=== PATIENT | male | born 1985 | race Caucasian/White ===

== ENCOUNTER 2019-12-11 08:38 | Observation (INO) | payer BC ==
--- NOTE | 2019-12-11 09:37 | RAD ---
XR Chest 1 View Portable HISTORY: Chest pain COMPARISON: 09/04/2013 FINDINGS: The heart size is normal. The lungs are well expanded without focal areas of consolidation, pneumothorax or pleural effusions. IMPRESSION: No radiographic evidence of acute cardiopulmonary process.
[2019-12-11 09:38] LABS: #Basophils 0.1 thou/uL (0.0-0.2); #Eosinphils 0.5 thou/uL (0.0-0.7); #Lymphocytes 3.6 thou/uL (1.20-3.40); #Monocytes 0.7 thou/uL (0.11-0.59); %Basophils 1.1 % (0.0-1.0); %Eosinophils 5.5 % (0.0-10.0); %Lymphocytes 40.8 % (21.0-51.0); %Monocytes 7.3 % (0.0-10.0); %Neutrophils 45.1 % (42.0-75.0); Hemoglobin 15.4 g/dL (14.0-18.0); Mean Corpuscular HGB CONC 32.4 g/dL (32.0-36.0); Mean Corpuscular Hemoglobin 27.6 pg (27.0-31.0); Mean Corpuscular Volume 85.3 fL (78.0-98.0); Mean Platelet Volume 7.5 fL (7.4-10.4); Platelet Count 245 thou/uL (130-400); Red Blood Cell (RBC) Count 5.56 mill/uL (4.70-6.10); White Blood Cell (WBC) Count 8.9 thou/uL (4.8-10.8)
[2019-12-11 10:05] LABS: ALT (SGPT) 46 U/L (8-55); AST (SGOT) 32 U/L (5-34); Albumin 3.7 g/dL (3.5-5.0); Alkaline Phosphatase 71 U/L (40-110); Anion Gap 12 mmol/L (10-20); BUN (Urea Nitrogen) 9 mg/dL (8.9-20.6); Bilirubin, Total 0.5 mg/dL (0.2-1.2); Calc. Creatinine Clearance 0 mL/min (70-130); Calcium 9.1 mg/dL (7.8-10.44); Carbon Dioxide 27 mmol/L (22-29); Chloride 104 mmol/L (98-107); Estimated GFR-MDRD 88; Globulin 3.4 g/dL (2.4-3.5); Glucose 88 mg/dL (70-105); Potassium 4.2 mmol/L (3.5-5.1); Protein, Total 7.1 g/dL (6.0-8.3); Sodium 139 mmol/L (136-145)
[2019-12-11 10:20] LABS: CKMB 2.1 ng/mL (0-6.6)
[2019-12-11] MEDS ORDERED: Aspirin Chewable 81 MG TAB ONE (14:54)
--- NOTE | 2019-12-11 15:49 | HP ---
PRIMARY CARE PHYSICIAN: Ricardo Mello MD CHIEF COMPLAINT: Chest pain. HISTORY OF PRESENT ILLNESS: The patient is a pleasant 34-year-old male with past medical history of obesity who experienced chest pain and palpitations last night while at work. 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 He was not exerting himself at that time. He was walking around some, but mainly sitting when this pain occurred. He denies any shortness of breath, headache, or dizziness. He states he was diaphoretic, but they also have to wear the blue plastic PPE gowns for the majority of their shift, so he states he usually is sweaty and that this may not have been caused by the chest pain. The patient claims that this has happened in the past and improved on its own, so he was never seen in the ER for it. He was recently tested for COVID and was negative. He denies any fever, cough, nausea, vomiting, or diarrhea. He does state that he does usually have some level of shortness of breath, but it is due to his weight versus being new. Today, in the ER, they completed a chest x-ray and EKG and lab work. PAST MEDICAL HISTORY: OCD. PAST SURGICAL HISTORY: None. ALLERGIES: NO KNOWN DRUG ALLERGIES. MEDICATIONS: None. SOCIAL HISTORY: The patient lives alone. 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 He denies any alcohol or drug abuse. He is a former tobacco user and still chews nicotine gum regularly. FAMILY HISTORY: Grandmother with diabetes. REVIEW OF SYSTEMS: All other review of systems negative unless noted in the HPI. PHYSICAL EXAMINATION: VITAL SIGNS: Blood pressure 102/54, pulse 78, respiratory rate 15, and O2 saturation 95% on room air. No pain. HEENT: Head, atraumatic and normocephalic. Eyes, PERRLA. Extraocular muscles intact. No nystagmus. NECK: Normal range of motion. Trachea midline. No lymphadenopathy. RESPIRATORY: Clear to auscultation bilaterally. Normal chest rise. No rhonchi , no wheezes, no rales. CARDIOVASCULAR: Regular rate and rhythm. No rubs, no gallops, no murmurs. ABDOMEN: Soft, nontender. Umbilical hernia that is easily reducible. EXTREMITIES: No edema noted. No cyanosis. No clubbing. Posterior tibial pulse present. NEUROLOGIC: Oriented to person, place, and time. Normal affect. Normal behavior. LABORATORY DATA: White blood cells 8.9, RBCs 5.56, hemoglobin 15.4, hematocrit 47.4. Sodium 139, potassium 4.2, anion gap 12, BUN 9, creatinine 0.98, GFR 88, glucose 88. CK-MB 2.1. Initial troponin 0.039, second troponin is negative. Chest x-ray showed no radiographic evidence of acute cardiopulmonary process. EKG shows sinus rhythm with PVCs, 81 beats per minute. IMPRESSION AND PLAN: Monitor patient on telemetry overnight. We will obtain a TSH and magnesium level with his other lab work and continue to trend his troponins at least for the 3rd set. Stress test has been ordered. He has had nicotine and food today, so most likely it will occur in the morning. Educated the patient over need to be n.p.o. after midnight and to no longer have any nicotine or caffeine until at least after the stress test. The patient is pain-free at this time. We will obtain EKG if the pain does reoccur. GI prophylaxis in place with Pepcid. VT prophylaxis with Lovenox. The patient wishes to be a full code. His surrogate decision maker is his mom, Natalya Ordaz. This patient has been discussed with Dr. Chase. Job ID: [id number] MTDD
[2019-12-11 18:39] VITALS: BMI 56.7
[2019-12-11] MEDS: Atorvastatin Calcium 40 MG TAB PO SCH (20:31)
[2019-12-12] MEDS: Aspirin 325 mg Enteric Coated Tablet PO SCH (08:19)
[2019-12-12] MEDS: Enoxaparin Sodium 40 MG/0.4 ML SYRINGE SC SCH (08:19)
[2019-12-12] MEDS ORDERED: Regadenoson 0.4 MG/5 ML SYRINGE ONE (11:44)
--- NOTE | 2019-12-12 16:20 | PDOC.HOSPP ---
- Subjective Encounter Date: 12/12/19 Encounter Time: 15:00 Subjective: pt up in chair - Objective Vital Signs & Weight: Vital Signs (12 hours) Temp Pulse Resp BP Pulse Ox 12/12/19 12:08 97.8 F 97 19 138/99 H 93 L 12/12/19 07:30 98.0 F 72 22 H 145/68 H 93 L Weight Weight 373 lb 1.6 oz Result Diagrams: 12/11/19 09:25 12/11/19 09:25 Hospitalist ROS - Review of Systems Respiratory: denies: cough, dry, shortness of breath, hemoptysis, SOB with excertion, pleuritic pain, sputum, wheezing, other Cardiovascular: denies: chest pain, palpitations, orthopnea, paroxysmal noc. dyspnea, edema, light headedness, other Gastrointestinal: denies: nausea, vomiting, abdominal pain, diarrhea, constipation, melena, hematochezia, other - Medication Medications: Active Medications Generic Name Dose Route Start Last Admin Trade Name Freq PRN Reason Stop Dose Admin Aspirin 325 mg 12/12/19 09:00 12/12/19 08:19 Ecotrin PO 325 mg DAILY MARYAM Administration Atorvastatin Calcium 40 mg 12/11/19 21:00 12/11/19 20:31 Lipitor PO 40 mg HS MARYAM Administration Enoxaparin Sodium 40 mg 12/12/19 09:00 12/12/19 08:19 Lovenox SC 40 mg 0900 MARYAM Administration - Exam Heart: negative: RRR, no murmur, no gallops, no rubs, normal peripheral pulses, irregular, diminshed peripheral pulses, murmur present, II/IV, III/IV Respiratory: negative: CTAB, no wheezes, no rales, no ronchi, normal chest expansion, no tachypnea, normal percussion, rales, rhonchi, tachypneic, wheezes Gastrointestinal: negative: soft, non-tender, non-distended, normal bowel sounds , no palpable masses, no hepatomegaly, no splenomegaly, no bruit, no guarding, no rigidity, tender to palpation, distended, diminished bowl sounds, voluntary guarding Extremities: negative: no cyanosis, no clubbing, no edema, 1+ LE edema, 2+ LE edema, clubbing Hosp A/P (1) Chest pain Code(s): R07.9 - CHEST PAIN, UNSPECIFIED Status: Acute (2) Obesity Code(s): E66.9 - OBESITY, UNSPECIFIED Status: Acute - Plan pt is undergoing two day stress test. He feels well currently. He is suppose to follow up with his primary for cpap. if his stress test in am is negative he will be discharged.
[2019-12-12] MEDS: Atorvastatin Calcium 40 MG TAB PO SCH (21:19)
[2019-12-13] MEDS ORDERED: Multivit, Therapeutic 1 TAB PO SCH (09:00)
[2019-12-13] MEDS: Aspirin 325 mg Enteric Coated Tablet PO SCH (09:02)
[2019-12-13] MEDS: Enoxaparin Sodium 40 MG/0.4 ML SYRINGE SC SCH (09:04)
--- NOTE | 2019-12-13 10:49 | NM ---
CARDIAC SPECT: CLINICAL HISTORY: 34-year-old male with chest pain. TECHNIQUE: A myocardial perfusion scan was performed using the single isotope two day protocol with 30 mCi techn etium-99m sestamibi injected intravenously for both stress and rest images. Pharmacologic stress with Lexiscan was monitored and interpreted by Flora Rayo NP. FINDINGS: Homogeneous tracer distribution is seen in the myocardial segments on stress and rest images without fixed or reversible defects. GATED SPECT LVEF: 50%. WALL MOTION EXAM: Normal. IMPRESSION: Normal myocardial perfusion scan. POS: CHRISTO
[2019-12-13 11:33] VITALS: BP 130/80; TEMP 97.6
[2019-12-13] MEDS ORDERED: Carvedilol 3.125 MG TAB PO SCH (17:00)
--- NOTE | 2019-12-14 04:13 | DIS ---
DATE OF ADMISSION: 12/11/2019 DATE OF DISCHARGE: 12/13/2019 DISCHARGE DIAGNOSES: 1. Chest pain. 2. Obesity. 3. Mild PVCs. HOSPITAL COURSE: The patient is a 34-year-old, obese male, who initially presented to the hospital with complaints of some throbbing pain and some palpitations that has been going on for some while. The patient at this time was evaluated for heart disease. He had mildly one elevated troponin at 0.039. The rest remaining were normal. His thyroid function was normal. At this time, his electrolytes were stable. He did have a few PVCs. He had a stress test. The stress test was normal. Given his PVCs, I recommended starting the patient on a low-dose beta audra and also wanted him to follow up with Cardiology as an outpatient. He will also require an echocardiogram. I did talk to him about sleep study and he stated that he is going to follow up with his primary for getting set up for sleep study, which he has not done so. We talked about possible putting him on some medications to decrease his LDL. He stated that he wanted to do diet, exercise, and weight loss and try that before starting taking any medications, which is appropriate. The patient felt well. He denied having any symptoms. He will be discharged today. He will follow up with primary and also recommend following up with Cardiology. MEDICATIONS: His medications will be; 1. Aspirin 81 mg daily. 2. Coreg 3.125 twice a day. 3. Fish oil daily. 4. Flonase as needed. 5. Claritin 10 mg a day. PHYSICAL EXAMINATION: VITAL SIGNS: Temperature 97.6, pulse rate 61, respiratory rate 16, O2 saturation 94% on room air, and blood pressure 130/80. GENERAL: He is awake, alert, and oriented x3. Does not appear in distress. Again, I recommend the patient following up with Primary and Cardiology and getting a sleep study. Job ID: [id number]
== END 2019-12-13 12:40 | disposition home or self-care (01) ==
LOC: ERS 08:38 → ERHOLD 13:39 → 2NO 17:09
PROVIDERS: ADMIT Internal Medicine; ATTEND Internal Medicine
DX: R07.9 Chest pain, unspecified (principal); E66.9 Obesity, unspecified; I49.3 Ventricular premature depolarization; F17.220 Nicotine dependence, chewing tobacco, uncomplicated; Z68.43 Body mass index [BMI] 50.0-59.9, adult; Z79.82 Long term (current) use of aspirin; Z79.899 Other long term (current) drug therapy
CPT/HCPCS: 36415; 71045; 78452; 80053; 80061; 82553; 83735; 84443; 84484; 85025; 93005; 93017; 94760; 96372; A9500; G0378; J1650; J2785

== ENCOUNTER 2020-01-23 17:30 | Outpatient (CLI) | payer BC | END 2020-01-23 17:31 | disposition home or self-care (01) | LOC: SLEEPLAB 17:30 | PROVIDERS: ATTEND Family Medicine | DX: F51.9 Sleep disorder not due to a substance or known physiological condition, unspecified (principal); G47.33 Obstructive sleep apnea (adult) (pediatric); R53.83 Other fatigue; R06.83 Snoring; G47.00 Insomnia, unspecified; E66.9 Obesity, unspecified; Z68.43 Body mass index [BMI] 50.0-59.9, adult | CPT/HCPCS: 95806 ==

== ENCOUNTER 2020-10-23 08:52 | Emergency (ER) | payer BC ==
[2020-10-23 09:58] LABS: #Basophils 0.1 thou/uL (0.0-0.2); #Eosinphils 0.5 thou/uL (0.0-0.7); #Lymphocytes 3.8 thou/uL (1.20-3.40); #Monocytes 0.8 thou/uL (0.11-0.59); #Neutrophils 4.9 thou/uL (1.40-6.50); %Basophils 0.9 % (0.0-1.0); %Eosinophils 5.1 % (0.0-10.0); %Lymphocytes 37.7 % (21.0-51.0); %Monocytes 7.5 % (0.0-10.0); %Neutrophils 48.8 % (42.0-75.0); Hemoglobin 15.3 g/dL (14.0-18.0); Mean Corpuscular HGB CONC 34.1 g/dL (32.0-36.0); Mean Corpuscular Hemoglobin 29.2 pg (27.0-31.0); Mean Corpuscular Volume 85.6 fL (78.0-98.0); Mean Platelet Volume 6.9 fL (7.4-10.4); Platelet Count 248 thou/uL (130-400); RBC Distribution Width 11.8 % (11.5-14.5); Red Blood Cell (RBC) Count 5.24 mill/uL (4.70-6.10)
[2020-10-23] MEDS ORDERED: Lorazepam 2 MG/ML VIAL ONE (10:10)
[2020-10-23] MEDS ORDERED: Ondansetron PF 4 MG/2 ML Vial ONE ×2 (10:10→11:42)
[2020-10-23] MEDS ORDERED: Fentanyl 100 MCG/2 ML VIAL ONE (10:10)
[2020-10-23 10:18] LABS: ALT (SGPT) 40 U/L (8-55); AST (SGOT) 29 U/L (5-34); Albumin 3.7 g/dL (3.5-5.0); Alkaline Phosphatase 64 U/L (40-110); Anion Gap 12 mmol/L (10-20); BUN (Urea Nitrogen) 9 mg/dL (8.9-20.6); Bilirubin, Total 0.7 mg/dL (0.2-1.2); Calc. Creatinine Clearance 0 mL/min (70-130); Calcium 8.9 mg/dL (7.8-10.44); Carbon Dioxide 28 mmol/L (22-29); Chloride 98 mmol/L (98-107); Globulin 3.1 g/dL (2.4-3.5); Glucose 94 mg/dL (70-105); Lipase 26 U/L (8-78); Potassium 3.6 mmol/L (3.5-5.1); Protein, Total 6.8 g/dL (6.0-8.3); Sodium 134 mmol/L (136-145)
[2020-10-23] MEDS ORDERED: Ketamine 50 MG/ML (10ML VIAL) ONE (11:42)
== END 2020-10-23 13:54 | disposition home or self-care (01) ==
LOC: ERS 08:52
DX: K43.9 Ventral hernia without obstruction or gangrene (principal); Z87.891 Personal history of nicotine dependence
CPT/HCPCS: 36415; 74177; 80053; 83605; 83690; 84484; 85025; 93005; 96374; 96375; 96376; 99152; J2060; J2405; J3010

== ENCOUNTER → 2020-11-05 | Day surgery (SDC) | payer BC ==
[2020-11-04 16:23] VITALS: BMI 53.8
[~2020-11-05] MED LIST: Acetaminophen 500 MG TAB ONE; Bupivacaine 0.25% HCL 30 ML VIAL ONE; Dexamethasone 20 MG/5 ML VIAL ONE; Fentanyl 100 MCG/2 ML VIAL ONE; Glycopyrrolate 0.2 MG/ML 5 ML SYRINGE ONE; Ketorolac Tromethamine 30 MG/ML VIAL ONE; Lidocaine 1% PF 5 ML VIAL ONE; Lidocaine 1% w/Epinephrine 1:100K 20 ML VIAL ONE; Midazolam HCl 2 mg/2 ml Vial ONE; Ondansetron PF 4 MG/2 ML Vial ONE; PHENYLEPHRINE-NS 100 MCG/ML 10 ML SYRINGE ONE; PROPOFOL 200 MG/20 ML VIAL ONE; Rocuronium Bromide 10 MG/ML (10ML VIAL) ONE; ePHEDrine Sulfate 50 MG/10 ML VIAL ONE
== END ==
LOC: SDC 08:28
PROVIDERS: ATTEND Surgery
PROC: 0WUF0JZ Supplement Abdominal Wall with Synthetic Substitute, Open Approach (ICD-10-PCS; principal; 2020-11-05)
DX: K42.9 Umbilical hernia without obstruction or gangrene (principal); K66.0 Peritoneal adhesions (postprocedural) (postinfection); E66.01 Morbid (severe) obesity due to excess calories; Z68.43 Body mass index [BMI] 50.0-59.9, adult; Z79.82 Long term (current) use of aspirin; Z79.899 Other long term (current) drug therapy
CPT/HCPCS: 88302; J0690; J1100; J1885; J2250; J2405; J2704; J3010; S0020